=== PATIENT | male | born 1975 | race Hispanic/Latino ===

== ENCOUNTER 2022-01-03 23:24 | Emergency (ER) | payer OTHER ==
[~2022-01-03] VITALS: Ht 167.6 cm; Wt 80.3 kg
[2022-01-04] MEDS ORDERED: ULTRAM 50MG50 MG PO (00:45)
== END 2022-01-04 00:42 | disposition home or self-care (01) ==
LOC: ER 23:31
DX: S93.115A Dislocation of interphalangeal joint of left lesser toe(s), initial encounter (principal); X50.1XXA Overexertion from prolonged static or awkward postures, initial encounter; Y92.89 Other specified places as the place of occurrence of the external cause
CPT/HCPCS: 99283